=== PATIENT | male | born 1970 | race Caucasian/White ===

== ENCOUNTER 2020-12-18 07:42 | Emergency (ER) | payer OTHER ==
[~2020-12-18] VITALS: Ht 177.8 cm; Wt 90.7 kg
[2020-12-18 08:17] LABS: URINE BILIRUBIN NEGATIVE (Negative); URINE BLOOD NEGATIVE (Negative); URINE CLARITY CLEAR; URINE COLOR YELLOW; URINE GLUCOSE-RANDOM* NEGATIVE (Negative); URINE KETONES NEGATIVE (Negative); URINE LEUKOCYTES-REFLEX NEGATIVE (Negative); URINE NITRITE-REFLEX NEGATIVE (Negative); URINE PROTEIN (DIPSTICK) NEGATIVE (Negative); URINE UROBILINOGEN 0.2 E.U./dl (0.2-1.0)
[2020-12-18 08:43] LABS: SSA (PROTEIN CONFIRMATORY) NEGATIVE (Negative)
[2020-12-18 08:53] LABS: ABSOLUTE NEUTROPHILS 3.1 thou/uL (1.4-8.2); BASOPHILS 0.7 % (0.0-2.0); EOSINOPHILS 7.5 % (0.0-3.0); HEMOGLOBIN 14.4 gm/dL (14.0-18.0); LYMPHOCYTES 26.7 % (24.0-44.0); MCH 30.8 pg (26.0-34.0); MCHC 34.3 g/dL (28.0-37.0); MCV 89.8 fL (80.0-100.0); MONOCYTES 7.9 % (1.0-8.0); PLATELET COUNT 197 thou/uL (150-400); POLYS 57.2 % (36.0-66.0); RBC 4.67 mil/uL (4.50-6.00); RDW 12.5 % (10.5-14.5); WBC 5.4 thou/uL (4.0-11.0)
[2020-12-18 09:04] LABS: CALCIUM 8.6 mg/dL (8.5-10.1); CREATININE 0.9 mg/dL (0.7-1.3)
[2020-12-18 09:12] LABS: ALBUMIN 3.8 g/dL (3.4-5.0); TOTAL BILIRUBIN 0.7 mg/dL (0.2-1.0)
[2020-12-18 11:22] VITALS: BP 138/86
== END 2020-12-18 11:24 | disposition home or self-care (01) ==
LOC: ER 07:42
PROVIDERS: Emergency Medicine
DX: K40.90 Unilateral inguinal hernia, without obstruction or gangrene, not specified as recurrent (principal)

== ENCOUNTER 2021-04-23 06:05 | Inpatient (IN) | payer OTHER ==
[~2021-04-23] VITALS: Ht 177.8 cm; Wt 90.7 kg
[2021-04-23 06:13] VITALS: BP 120/72
[2021-04-23 06:53] LABS: ABSOLUTE NEUTROPHILS 12.6 thou/uL (1.4-8.2); BASOPHILS 0.2 % (0.0-2.0); EOSINOPHILS 2.1 % (0.0-3.0); HEMATOCRIT 42.7 % (42.0-52.0); HEMOGLOBIN 14.5 gm/dL (14.0-18.0); MCH 30.6 pg (26.0-34.0); MCV 90.2 fL (80.0-100.0); MONOCYTES 7.2 % (1.0-8.0); PLATELET COUNT 193 thou/uL (150-400); POLYS 82.5 % (36.0-66.0); RBC 4.73 mil/uL (4.50-6.00); RDW 12.9 % (10.5-14.5); WBC 15.3 thou/uL (4.0-11.0)
[2021-04-23 06:54] LABS: CALCIUM 8.6 mg/dL (8.5-10.1); CREATININE 0.9 mg/dL (0.7-1.3); POTASSIUM 4.1 mmol/L (3.5-5.1)
--- NOTE | 2021-04-23 07:09 | NUR ---
TOOK OVER CARE AT THIS TIME
[2021-04-23 09:05] VITALS: BP 115/67
[2021-04-23 09:42] VITALS: BP 114/68
[2021-04-23] MEDS ORDERED: TYLENOL325 MG PO (10:56)
[2021-04-23] MEDS ORDERED: OXYCODONE HCL 55 MG PO (10:56)
[2021-04-23] MEDS ORDERED: CVS SENNA PLUS1 EACH PO (10:57)
[2021-04-23] MEDS ORDERED: MIRALAX119 GM PO (10:57)
[2021-04-23] MEDS ORDERED: ADVIL200 M1 PO (10:57)
[2021-04-23 12:04] VITALS: BP 114/68
--- NOTE | 2021-04-24 12:35 | H ---
[facility] [place] [address] HISTORY AND PHYSICAL Name: GREER ROQUE Room #: 150-2 DIS IN M.Richard.#: [id number] Admission: 04/23/21 Attend Phys: Lawson Clark MD Discharge: 04/23/21 Date of : 72 Report #: [id number] THIS REPORT FOR: cc: FAM - No family physician/PCP FAM - No family physician/PCP Lawson Clark MD ~ DATE OF SERVICE: 04/23/2021 ATTENDING PHYSICIAN: Dr. Clark. CHIEF COMPLAINT: Abdominal pain. HISTORY OF PRESENT ILLNESS: This is a 50-year-old gentleman who I know well, who is actually scheduled for hernia surgery on Thursday, who presented with right lower quadrant pain. He has had this pain in the past, but it went away on its own. Pain is made worse by movement and alleviated with placing pressure on it. He denies nausea, vomiting, diarrhea or constipation. The patient presented to the ER and was found to have appendicitis on CT scan. PAST MEDICAL HISTORY: Inguinal hernia. PAST SURGICAL HISTORY: Colonoscopy. SOCIAL HISTORY: Denies use of alcohol, tobacco or recreational drugs. FAMILY HISTORY: Denies coagulopathy or malignancy. REVIEW OF SYSTEMS: CONSTITUTIONAL: No fever. No chills. HEENT: Denies blurring of vision, double vision, headaches, hearing loss, sinus drainage or sore throat. Denies blurring of vision, double vision, headaches, hearing loss, sinus drainage or sore throat. CARDIOVASCULAR: Denies chest pain, palpitations, orthopnea or paroxysmal nocturnal dyspnea. RESPIRATORY: Denies cough, wheezing, hemoptysis, or shortness of air. GASTROINTESTINAL: See above and below. GENITOURINARY: Denies dysuria or hematuria or kidney stones. No urinary frequency, urgency or incontinence. Denies dysuria or hematuria or kidney stones. No urinary frequency, urgency or incontinence. MUSCULOSKELETAL: No joint pain. No muscle pain. NEUROLOGICAL: Denies tremor, stroke or seizure. Denies tremor, stroke or seizure. HEMATOLOGIC / LYMPHATICS: Denies easy bruising, easy bleeding or enlarged lymph nodes. SKIN: No rash or ulceration. [facility] [address] [place] [address] HISTORY AND PHYSICAL Name: GREER ROQUE Room #: 150-2 [facility] IN ..#: [id number] Admission: 04/23/21 Attend Phys: Lawson Clark MD Discharge: 04/23/21 Date of : 72 Report #: [id number] ENDOCRINE: No heat or cold intolerance PSYCHIATRIC: Denies depression, anxiety, or schizophrenia. PHYSICAL EXAMINATION: GENERAL: No apparent distress, alert and oriented x 3. VITAL SIGNS: Temperature is 37.1, pulse 70, respiratory rate 16, blood pressure 114/68, pulse ox 96%. HEENT: PERRLA, EOMI, MMM, NCAT NECK: Supple. No LAD CARDIOVASCULAR: Regular rhythm and rate. Hemodynamically stable. Normal capillary refill. Regular rhythm and rate. Hemodynamically stable. Normal capillary refill. PULMONARY: Nonlabored. Clear to auscultation bilaterally. ABDOMEN: Soft, tender to palpation in the right lower quadrant with voluntary guarding. No rebound, no rigidity. Nondistended. ABDOMEN: Soft, nontender, nondistended, no guarding, rebound, or rigidity. EXTREMITIES: Calves soft, nontender, no edema. SKIN: No rashes or bruises. PSYCHIATRIC: Normal mood and affect Normal mood and affect NEUROLOGICAL: Grossly intact. CN 2-12grossly intact. MUSCULOSKELETAL: 5/5 strength in upper extremities and lower extremities bilaterally LYMPHATICS: No cervical, inguinal, or supraclavicular lymphadenopathy. IMAGING DATA: CT of the abdomen and pelvis. Impression: Acute appendicitis with no periappendiceal abscess or free air. ASSESSMENT AND PLAN: The patient is a 50-year-old gentleman with acute appendicitis. 1. Admit to General Surgery. 2. IV antibiotics. 3. N.p.o. 4. Consent for laparoscopic appendectomy, possible open. <ELECTRONICALLY SIGNED> By: Lawson Clark MD 04/24/21 1235 [id number] [id number] Lawson Clark MD /nt
--- NOTE | 2021-04-24 18:06 | PATH ---
[facility] [address] [place] [address] PATHOLOGY RPT PROCEDURE Name: GREER ROQUE Mahin Room #: 150-2 [facility] IN M.R.#: [id number] Admission: 04/23/21 Date of : 72 Discharge: 04/23/21 Report #: [id number] Path Case #: [id number] [facility] Accession Number: [id number] . 01 Material submitted: . appendix - APPENDIX . 01 Clinical history: . LAPAROSCOPIC APPENDECTOMY RIGHT SIDE ABD PAIN . 02 Diagnosis: Appendix, appendectomy: - Marked acute appendicitis along with marked acute serositis. (IUV/db; 04/24/2021) LBQ 04/24/2021 1617 Local . 02 Electronically signed: . Peri Daly MD, Pathologist NPI- [id number] . 01 Gross description: . Fixative: Formalin Labeled: Appendix Appendix length: 6.5 cm Appendix diameter: 1.0 cm Mesoappendix: 3.5 cm Proximal margin: Stapled Serosa: Skinner, focally hemorrhagic with a moderate amount of lewis-white exudate. Cut surface: Skinner and focally hemorrhagic Luminal diameter: 0.2 cm Perforation: None identified Lesions/abnormalities: None identified A1 Proximal margin (inked black) and distal tip, bisected A2 Mid appendix (MRF; 04/23/2021) MFE/MFE 04/23/2021 1839 Local . 02 Pathologist provided ICD-10: K35.80 . 02 CPT . 523385 Specimen Comment: A courtesy copy of this report has been sent to [phone] Specimen Comment: Report sent to Performed at: [address] [address] PATHOLOGY RPT PROCEDURE Name: GREER ROQUE Room #: 150-2 [facility] IN ..#: [id number] Admission: 04/23/21 Date of : 72 Discharge: 04/23/21 Report #: [id number] Path Case #: [id number] [address] [id number] MD Theo Hardy MD Phone: [phone] Performed at: [address] [id number] MD Peri Daly MD Phone: [phone]
== END 2021-04-23 13:00 | disposition home or self-care (01) | DRG 343 ==
LOC: ER 06:05 → TBA 09:22
PROVIDERS: Student in an Organized Health Care Education/Training Program; ADMIT Surgery; ATTEND Surgery
PROC: 0DTJ4ZZ Resection of Appendix, Percutaneous Endoscopic Approach (ICD-10-PCS; principal; 2021-04-23)
DX: K35.80 Unspecified acute appendicitis (principal); K40.20 Bilateral inguinal hernia, without obstruction or gangrene, not specified as recurrent; Z20.822 Contact with and (suspected) exposure to COVID-19; Z87.891 Personal history of nicotine dependence
CPT/HCPCS: 50010; 50101; 50411; 50555; 50558; 50739; 52265; 53307; 53310; 53312; 54022; 54118; 56525; 56526; 58574; 58867; 58868

== ENCOUNTER 2021-05-24 06:03 | Day surgery (SDC) | payer OTHER ==
[~2021-05-24] VITALS: Ht 177.8 cm; Wt 96.2 kg
[~2021-05-24 06:03] MED LIST: ADVIL200 M1 PO; CVS SENNA PLUS1 EACH PO; MIRALAX119 GM PO; OXYCODONE HCL 55 MG PO; TYLENOL325 MG PO
[2021-05-24 07:57] VITALS: BP 120/78
[2021-05-24] MEDS ORDERED: IBUPROFEN 200200 M1 PO (10:50)
[2021-05-24] MEDS ORDERED: OXYCODONE HCL 55 MG PO (10:50)
[2021-05-24] MEDS ORDERED: MIRALAX17 GM PO (10:50)
[2021-05-24] MEDS ORDERED: TYLENOL325 MG PO (10:50)
[2021-05-24] MEDS ORDERED: COLACE100 MG PO (10:50)
[2021-05-24 11:20] VITALS: BP 120/78
--- NOTE | 2021-05-27 18:06 | PATH ---
[facility] [address] [place] [address] PATHOLOGY RPT PROCEDURE Name: GREER PATEL Mahin Room #: DEP [facility] M.R.#: [id number] Admission: 05/24/21 Date of : 72 Discharge: 05/24/21 Report #: [id number] Path Case #: [id number] LCA Accession Number: [id number] . 01 Material submitted: . PART A: inguinal area - RIGHT CORD LIPOMA. Modifiers: right PART B: inguinal area - LEFT CORD LIPOMA. Modifiers: left . 01 Clinical history: . LAPAROSCOPIC HERNIA REPAIR/INGUINAL BILATERAL INGUINAL HERNIA . 02 Diagnosis: A. Mature adipose tissue, right cord lipoma, excision: - Lipoma with congestion, fat necrosis and reactive changes. - Lymph node with reactive changes. . B. Mature adipose tissue, left cord lipoma, excision: - Lipoma with congestion, fat necrosis and reactive changes. . (IUV:edil; 05/27/2021) MBR 05/27/2021 1721 Local . 02 Electronically signed: . Peri Daly MD, Pathologist NPI- [id number] . 01 Gross description: . A. The specimen is received in formalin, labeled "Greer Blanco, right cord lipoma". It consists of 2 lopez-yellow, irregular fatty soft tissue segments measuring 3.0 and 5.5 cm. Sectioning reveals yellow lobulated cut surfaces and lopez rubbery cut surfaces. Route Salesman sections are submitted in A1-A3. . B. The specimen is received in formalin, labeled "Greer Blanco, left cord lipoma". It consists of multiple lopez-yellow, irregular fatty tissue segments measuring 5.0 x 3.0 x 0.7 cm in aggregate. Sectioning reveals lopez-yellow lobulated cut surfaces. Route Salesman sections are submitted in B1-B2. (MRF; 05/24/2021) E/E 05/24/2021 1829 Local . 02 Pathologist provided ICD-10: D17.9 . 02 CPT . 028369, [id number] [place] [address] PATHOLOGY RPT PROCEDURE Name: GREER PATEL Room #: DEP [facility] Etta#: [id number] Admission: 05/24/21 Date of : 72 Discharge: 05/24/21 Report #: [id number] Path Case #: [id number] Specimen Comment: A courtesy copy of this report has been sent to [phone] Performed at: [address] [facility] [address], [place], [place] [id number] MD Theo Hardy MD Phone: [phone] Performed at: [address] [facility] [id number] MD Peri Daly MD Phone: [phone]
== END 2021-05-24 12:40 | disposition home or self-care (01) ==
LOC: TBA 06:03 → OR 06:03 → TBA 06:11 → OR 10:16
PROVIDERS: ATTEND Surgery
DX: K40.20 Bilateral inguinal hernia, without obstruction or gangrene, not specified as recurrent (principal); D17.6 Benign lipomatous neoplasm of spermatic cord; Z98.890 Other specified postprocedural states; Z79.899 Other long term (current) drug therapy; Z87.891 Personal history of nicotine dependence; Z20.822 Contact with and (suspected) exposure to COVID-19
CPT/HCPCS: 50101; 50411; 50555; 50854; 50984; 52265; 52266; 53307; 53310; 54022; 54118; 56462; 56525; 56526; 58574; 58911; 62110; 62900; 70005

== ENCOUNTER 2021-05-24 19:57 | Inpatient (IN) | payer OTHER ==
[~2021-05-24] VITALS: Ht 177.8 cm; Wt 97.1 kg
--- NOTE | ~2021-05-24 | EMS ---
[facility] [address] [place] [address] EMS Patient Care Report Name: GREER PATEL Room #: 209-P ADM IN M.R.#: [id number] Admission: 05/25/21 Attend Phys: Adam Patten MD Discharge: Date of : 72 Report #: [id number] THIS REPORT FOR: //name// Report Transmitted: 05/27/2021 09:41 EMS Care Summary [place], [place]/[facility] Incident [id number] @ 05/24/2021 19:24 Incident Location [address] [place] [address] Patient GREER ROQUE Male, 50 Years 1970 Patient Address [address] [place] [address] Patient History Hernia (Abdominal), Chief Complaint Syncope episode Disposition Transported No Lights/[place] Dispatch Reason Unconscious/Fainting Transported To [facility] Narrative M42 arrived on scene to find the patient lying supine on the ground. Patient said this morning he had a hernia surgery and this evening as he was walking towards his room he had gotten lightheaded and passed out. Patient's family member said he was only passed out for 10-20 seconds. Patient denied head, neck, or back pain. Patient denied taking any blood thinners. Patient denied currently having chest pain, fever, cough, shortness of breath, or dizziness. Patient was placed on a bobby acls specialist and moved to the cot and seat belts were used with the patient. En route to the hospital no changes in the patient [facility] [address] [place] [address] EMS Patient Care Report Name: GREER PATEL Room #: 209-P ADM IN M.R.#: [id number] Admission: 05/25/21 Attend Phys: Adam Patten MD Discharge: Date of : 72 Report #: [id number] condition occurred. M42 arrived on scene of the hospital and patient care was transferred to the RN. Initial Vitals @19:38P: 80, @19:36P: 60,R: 16,BP: 100/68,Pain: 0/10,GCS: 15,SpO2: 98,Revised Trauma: 12, @19:37P: 68,R: 16,BP: 105/71,Pain: 0/10,GCS: 15,SpO2: 97,Revised Trauma: 12, Assessments @19:31MENTAL:No Abnormalities,SKIN:No Abnormalities,HEENT:Head/Face: No Abnormalities,Eyes: No Abnormalities,Neck/Airway: No Abnormalities,LUNG SOUNDS:General: No Abnormalities,Left Upper: No Abnormalities,Right Upper: No Abnormalities,Left Lower: No Abnormalities,Right Lower: No Abnormalities,ABDOMEN:General: No Abnormalities,Left Upper: No Abnormalities,Right Upper: No Abnormalities,Left Lower: No Abnormalities,Right Lower: No Abnormalities,PELVIS//GI:No Abnormalities,EXTREMITIES:Left Arm: No Abnormalities,Right Arm: No Abnormalities,Left Leg: No Abnormalities,Right Leg: No Abnormalities,PULSE:NEURO:No Abnormalities,@19:42MENTAL:No Abnormalities,SKIN:No Abnormalities,HEENT:Head/Face: No Abnormalities,Eyes: No Abnormalities,Neck/Airway: No Abnormalities,LUNG SOUNDS:General: No Abnormalities,Left Upper: No Abnormalities,Right Upper: No Abnormalities,Left Lower: No Abnormalities,Right Lower: No Abnormalities,ABDOMEN:General: No Abnormalities,Left Upper: No Abnormalities,Right Upper: No Abnormalities,Left Lower: No Abnormalities,Right Lower: No Abnormalities,PELVIS//GI:No Abnormalities,EXTREMITIES:Left Arm: No Abnormalities,Right Arm: No Abnormalities,Left Leg: No Abnormalities,Right Leg: No Abnormalities,PULSE:NEURO:No Abnormalities, Impression Syncope / Fainting Procedures @19:3812-Lead ECGResponse: UnchangedSucceeded@19:37Saline Lock 10cc (20 ga) Site: Antecubital-RightResponse: UnchangedSucceeded@19:31ALS AssessmentResponse: UnchangedSucceeded Timeline 19:22,Call Received 19:22,Dispatch Notified 19:24,Dispatched 19:25,En Route 19:30,On Scene 19:31,At Patient 19:31,ALS Assessment,Response: UnchangedSucceeded, 19:36,BP: 100/68 M,PULSE: 60,RR: 16 R,SPO2: 98 Ox,ETCO2: ,BG: ,PAIN: 0,GCS: 15, 19:37,Saline Lock 10cc 20 ga Site: Antecubital-Right,Response: [facility] [address] [place] [address] EMS Patient Care Report Name: GREER PATEL Room #: 209-P ADM IN M.R.#: [id number] Admission: 05/25/21 Attend Phys: Adam Patten MD Discharge: Date of : 72 Report #: [id number] UnchangedSucceeded, 19:37,BP: 105/71 M,PULSE: 68,RR: 16 R,SPO2: 97 Ox,ETCO2: ,BG: ,PAIN: 0,GCS: 15, 19:38,12-Lead ECG,Response: UnchangedSucceeded, 19:38,BP: / M,PULSE: 80,RR: R,SPO2: Ox,ETCO2: ,BG: ,PAIN: ,GCS: , 19:41,Depart Scene 19:59,At Destination 20:01,Call Closed Disclaimer v1.1 Copyright 2020 [employer] This EMS Care Summary contains data elements from the applicable legal record (which may be displayed differently). It is designed to provide pertinent information for the following purposes: continuity of care, clinical quality, and state data reporting. The complete legal record is available to ED staff and administrators of the receiving hospital in [employer]'s Patient Tracker. All data is provided "as is."
[~2021-05-24 19:57] MED LIST changes: +COLACE100 MG PO; +IBUPROFEN 200200 M1 PO; +MIRALAX17 GM PO
[2021-05-24 19:58] VITALS: BP 115/69
[2021-05-24 20:44] LABS: HEMATOCRIT 35.7 % (42.0-52.0); HEMOGLOBIN 12.2 gm/dL (14.0-18.0); MCH 30.7 pg (26.0-34.0); MCV 90.3 fL (80.0-100.0); RBC 3.96 mil/uL (4.50-6.00); RDW 12.6 % (10.5-14.5); WBC 16.3 thou/uL (4.0-11.0)
[2021-05-24 20:53] LABS: CALCIUM 7.9 mg/dL (8.5-10.1); CREATININE 1.1 mg/dL (0.7-1.3); POTASSIUM 4.4 mmol/L (3.5-5.1)
[2021-05-24 21:03] LABS: ALBUMIN 3.2 g/dL (3.4-5.0); TOTAL BILIRUBIN 0.7 mg/dL (0.2-1.0); TOTAL PROTEIN 6.3 g/dL (6.4-8.2)
[2021-05-25] VITALS (25 sets, daily range): BP systolic 97–128; BP diastolic 50–76
[2021-05-25 04:08] LABS: HEMATOCRIT 35.1 % (42.0-52.0); HEMOGLOBIN 11.6 gm/dL (14.0-18.0); MCH 30.3 pg (26.0-34.0); MCHC 33.2 g/dL (28.0-37.0); MCV 91.2 fL (80.0-100.0); RBC 3.85 mil/uL (4.50-6.00); RDW 13.1 % (10.5-14.5)
[2021-05-25 04:25] LABS: APTT 21.4 Seconds (24.5-32.8); INR 1.08; PROTIME 11.7 Seconds (10.5-12.1)
--- NOTE | 2021-05-25 06:21 | NUR ---
ASSUMED CARE OF PATIENT FROM ER. VITALS REMAINED STABLE. HGB UP FROM PREVIOUS CHECK. PATIENT NOT VACCINATED, DOES NOT TRUST THE GOVERNMENT, UNWILLING TO DISCUSS FURTHER. DOES NOT UNDERSTAND WHY THE COMPLICATIONS FROM SURGERY OCCURED. REMAINS ON BACK UNITL 0700 DUE TO GROIN SITE. PROGRESSING TOWARDS POC GOALS.
--- NOTE | 2021-05-25 09:50 | EKG ---
[place] [address] [facility] [place] [address] ELECTROCARDIOGRAM REPORT Name: MONAEIvanGREER J Room #: 248-P ADM IN M.R.#: [id number] Admission: 05/25/21 Attend Phys: Marisol Plascencia Discharge: Date of : 72 Report #: [id number] [facility] ED Test Date: 2021-05-24 Test Time: 20:34:36 Pat Name: GREER PATEL Department: Room: 248 Gender: M Exploitation Analyst: vicenta perez : 1970 Requested By: Chrissy Treadwell Order Number: [id number] MD: Michael Ramirez Measurements Intervals [place] Rate: 75 P: 50 [place]: 167 QRS: 5 QRSD: 80 T: 32 QT: 367 QTc: 410 Interpretive Statements Sinus arrhythmia Abnormal R-wave progression, early transition No previous ECG available for comparison Electronically Signed On 05-25-2021 9:49:34 CDT by Michael Ramirez [email or web address] <ELECTRONICALLY SIGNED> By: Michael Ramirez MD, [facility] 05/25/21 0949 33 33 Michael Ramirez MD, FACC /EPI
[2021-05-25 10:48] LABS: RBC 3.64 mil/uL (4.50-6.00); WBC 10.9 thou/uL (4.0-11.0)
[2021-05-25 10:49] LABS: HEMATOCRIT 33.3 % (42.0-52.0); HEMOGLOBIN 11.2 gm/dL (14.0-18.0); MCH 30.6 pg (26.0-34.0); MCHC 33.5 % (28.0-37.0); MCV 91.5 fL (80.0-100.0); RDW 12.9 % (10.5-14.5)
--- NOTE | 2021-05-25 11:32 | NUR ---
1130-STANDS TO VOID.FIRST COUPLE OF X'S RN AT BEDSIDE W HIM.GAIT STEADY & STANCE STRONG SO WAITING OUTSIDE OF THE CURTAIN ONCE PT IS ON HIS FEET.PT VERY UNHAPPY TO HAVE ANYONE IN ROOM W HIM WHEN HE USES THE URINAL.PT ON RA W SATS .94-96%. PT CALLED OUT TO NSG & STATED HIS APPLE WATCH TOLD HIM HE WAS HYPOXIC. RA SATS .94% AT THAT TIME.MUCH REASSURANCE GIVEN THRUOUT MORNING (ANXIOUS) NEEDED. FOREIGN MONTESINOS & JAMES IN TO SEE.MOM & DTR UPDATED EARLIER (ADDED DTR SPOKESPERSON PER PT REQUEST).RESTING MORE COMF p FENTANYL GIVEN FOR ABD PAIN.--VW
[2021-05-25 14:09] LABS: HEMATOCRIT 31.9 % (42.0-52.0); HEMOGLOBIN 10.7 gm/dL (14.0-18.0)
--- NOTE | 2021-05-25 15:21 | NUR ---
ENC USE OF PAIN MED EARLIER.STATES PAIN A 7/10 BUT W ANY MOVEMENT IT IS A 10/10. EXTREME TENDERNESS LLQ OF ABD W LIGHT TOUCH. TAKING MORE EFFORT FOR PT TO GET OOB BUT ONCE UP IS STEADY ON HIS FEET. CALLED W LABS & GENERAL UPDATE.ORDERS NOTED.--VW
[2021-05-26 04:45] VITALS: BP 124/71
[2021-05-26 05:12] LABS: ABSOLUTE NEUTROPHILS 4.5 thou/uL (1.4-8.2); BASOPHILS 0.2 % (0.0-2.0); EOSINOPHILS 0.6 % (0.0-3.0); HEMATOCRIT 29.2 % (42.0-52.0); HEMOGLOBIN 10.1 gm/dL (14.0-18.0); LYMPHOCYTES 23.6 % (24.0-44.0); MCH 31.3 pg (26.0-34.0); MCHC 34.5 g/dL (28.0-37.0); MCV 90.7 fL (80.0-100.0); MONOCYTES 10.3 % (1.0-8.0); PLATELET COUNT 112 thou/uL (150-400); POLYS 65.3 % (36.0-66.0); RBC 3.22 mil/uL (4.50-6.00); WBC 6.9 thou/uL (4.0-11.0)
[2021-05-26 05:32] LABS: CALCIUM 7.7 mg/dL (8.5-10.1); CREATININE 0.8 mg/dL (0.7-1.3); POTASSIUM 3.4 mmol/L (3.5-5.1)
--- NOTE | 2021-05-26 07:34 | NUR ---
ASSUMED CARE OF PT AT 1900, PT IS A/O X4. ASSESSMENT COMPLETED NOTED. PT C/O PAIN WITH MEDICATION GIVEN WITH RESOLUTION. WILL CONTINUE TO WORK TOWARDS PT'S POC.
[2021-05-26 08:00] VITALS: BP 124/66
[2021-05-26 12:30] VITALS: BP 120/66
[2021-05-26 16:00] VITALS: BP 132/65
[2021-05-26 20:15] VITALS: BP 132/75
[2021-05-27 04:42] VITALS: BP 118/64
[2021-05-27 04:53] LABS: HEMATOCRIT 29.6 % (42.0-52.0); HEMOGLOBIN 10.3 gm/dL (14.0-18.0); MCH 31.9 pg (26.0-34.0); MCHC 34.9 g/dL (28.0-37.0); MCV 91.3 fL (80.0-100.0); RBC 3.24 mil/uL (4.50-6.00); RDW 12.9 % (10.5-14.5); WBC 7.1 thou/uL (4.0-11.0)
[2021-05-27 05:24] LABS: CALCIUM 8.2 mg/dL (8.5-10.1); CREATININE 0.9 mg/dL (0.7-1.3); POTASSIUM 3.6 mmol/L (3.5-5.1)
[2021-05-27 07:40] VITALS: BP 127/76
--- NOTE | 2021-05-27 07:51 | NUR ---
PATIENT COMPLAIN OF LAP SITES PAIN.REQUESTED TYLENOL INSTEAD OF THE FENTANYL IV.VERBALIZED RELIEF.DENIES ANY NEEDS AT THIS TIME.MONITOR SHOWS SR.POC CONTINUED.
--- NOTE | 2021-05-27 09:46 | NUR ---
RD consult received. Pt s/p inguinal hernia repair with mesh on 05/25. Diet has progressed to regular. No significant wt changes. Pt presents at low nutrition risk
[2021-05-27] MEDS ORDERED: OXYCODONE HCL 55 MG PO (12:08)
[2021-05-27 14:48] VITALS: BP 127/76
== END 2021-05-27 15:00 | disposition home or self-care (01) | DRG 919 ==
LOC: ER 19:57 → ICU 05-25 03:17 → 2N 05-25 03:17
PROVIDERS: Internal Medicine; Nuclear Medicine Nuclear Cardiology; Nurse Practitioner Family; Student in an Organized Health Care Education/Training Program; ADMIT Hospitalist; ATTEND Hospitalist
DX: K91.840 Postprocedural hemorrhage of a digestive system organ or structure following a digestive system procedure (principal); K66.1 Hemoperitoneum; R65.11 Systemic inflammatory response syndrome (SIRS) of non-infectious origin with acute organ dysfunction; D62 Acute posthemorrhagic anemia; I95.9 Hypotension, unspecified; Y83.8 Other surgical procedures as the cause of abnormal reaction of the patient, or of later complication, without mention of misadventure at the time of the procedure; Y82.8 Other medical devices associated with adverse incidents; Z90.49 Acquired absence of other specified parts of digestive tract; Z87.891 Personal history of nicotine dependence
CPT/HCPCS: 10081

== ENCOUNTER 2021-05-30 08:54 | Emergency (ER) | payer OTHER ==
[~2021-05-30] VITALS: Ht 177.8 cm; Wt 90.7 kg
[2021-05-30 10:34] LABS: ABSOLUTE NEUTROPHILS 8.7 thou/uL (1.4-8.2); BASOPHILS 0.4 % (0.0-2.0); EOSINOPHILS 1.8 % (0.0-3.0); HEMATOCRIT 34.7 % (42.0-52.0); HEMOGLOBIN 11.8 gm/dL (14.0-18.0); LYMPHOCYTES 9.9 % (24.0-44.0); MCH 30.8 pg (26.0-34.0); MCV 90.5 fL (80.0-100.0); MONOCYTES 10.8 % (1.0-8.0); PLATELET COUNT 208 thou/uL (150-400); POLYS 77.1 % (36.0-66.0); RBC 3.83 mil/uL (4.50-6.00); RDW 12.7 % (10.5-14.5); WBC 11.3 thou/uL (4.0-11.0)
[2021-05-30 10:45] LABS: CALCIUM 8.4 mg/dL (8.5-10.1); CREATININE 0.8 mg/dL (0.7-1.3); POTASSIUM 3.7 mmol/L (3.5-5.1)
[2021-05-30 10:49] LABS: INR 0.98; PROTIME 10.7 Seconds (10.5-12.1)
[2021-05-30 10:50] LABS: ALBUMIN 3.4 g/dL (3.4-5.0); TOTAL BILIRUBIN 3.2 mg/dL (0.2-1.0); TOTAL PROTEIN 7.3 g/dL (6.4-8.2)
[2021-05-30 11:55] VITALS: BP 130/74
== END 2021-05-30 11:55 | disposition home or self-care (01) ==
LOC: ER 08:54
PROVIDERS: Emergency Medicine
DX: N50.1 Vascular disorders of male genital organs (principal); Z98.890 Other specified postprocedural states; Z90.49 Acquired absence of other specified parts of digestive tract; Z79.891 Long term (current) use of opiate analgesic; Z79.899 Other long term (current) drug therapy